=== PATIENT | male | born 1975 | race Caucasian/White ===

== ENCOUNTER 2020-01-27 10:58 | Emergency (ER) | payer OTHER ==
[~2020-01-27] VITALS: Ht 180.3 cm; Wt 95.3 kg
--- NOTE | 2020-01-27 11:40 | NUR ---
PT PLACED ON ALL ROOM MONITORING. WARM BLANKET PROVIDED, CALL LIGHT WITHIN REACH. FAMILY AT BS.
[2020-01-27 11:55] LABS: BASOPHILS # (AUTO) 0.04 x10^3/uL (0-0.1); BASOPHILS % (AUTO) 1 % (0-1); EOSINOPHILS # (AUTO) 0.06 x10^3/uL (0-0.4); EOSINOPHILS % (AUTO) 1 % (1-7); LYMPHOCYTES # (AUTO) 1.51 x10^3/uL (1-3.4); LYMPHOCYTES % (AUTO) 19 % (22-44); MD NO; MEAN CORPUSCULAR HEMOGLOBIN 30.2 pg (27.5-34.5); MEAN CORPUSCULAR HGB CONC 33.3 g/dL (33.2-36.2); MEAN CORPUSCULAR VOLUME 90.6 fL (81-97); MEAN PLATELET VOLUME 8.7 fL (7.4-10.4); MONOCYTES # (AUTO) 0.24 x10^3/uL (0.2-0.8); MONOCYTES % (AUTO) 3 % (2-9); NEUTROPHILS # (AUTO) 6.29 x10^3/uL (1.8-6.8); NEUTROPHILS % (AUTO) 77 % (42-75); PLATELET COUNT 217 x10^3/uL (130-400); RED BLOOD COUNT 5.56 x10^6/uL (4.38-5.82); RED CELL DISTRIBUTION WIDTH 13.3 % (9.4-14.8)
[2020-01-27 12:07] LABS: ALBUMIN 4.3 g/dL (3.4-5.0); ANION GAP 6 mmol/L (5-15); CALCIUM 9.6 mg/dL (8.5-10.1); CHLORIDE 108 mmol/L (98-107); CREATININE 1.17 mg/dL (0.7-1.3)
[2020-01-27 12:11] LABS: TROPONIN I 0.043 ng/mL (0.000-0.045)
--- NOTE | 2020-01-27 12:18 | NUR ---
ALL RESULTS BACK, PT FOR RECHECK.
[2020-01-27 12:30] VITALS: BP 126/84
== END 2020-01-27 12:59 | disposition home or self-care (01) ==
LOC: ED 11:34
DX: R07.89 Other chest pain (principal); R07.2 Precordial pain; I51.7 Cardiomegaly
CPT/HCPCS: 36415; 71045; 80048; 82040; 84484; 85025; 93005; 99285